=== PATIENT | male | born 1965 | race African-American/Black ===

== ENCOUNTER 2017-04-02 17:14 | Emergency (ER) | payer OTHER ==
[2017-04-02] MEDS ORDERED: DIPHTH,PERTUSS(ACELL),TET 0.5 ML DISP.SYRIN IM ONE (17:21)
[2017-04-02 17:22] VITALS: BP 142/86; PULSE 67; TEMP 98.3; BMI 27.1
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
== END 2017-04-02 19:59 | disposition home or self-care (01) ==
LOC: JERFT 17:14
PROC: 3E0234Z Introduction of Serum, Toxoid and Vaccine into Muscle, Percutaneous Approach (ICD-10-PCS; principal; 2017-04-02)
DX: S61.431A Puncture wound without foreign body of right hand, initial encounter (principal); W27.8XXA Contact with other nonpowered hand tool, initial encounter; Y93.89 Activity, other specified; Y92.69 Other specified industrial and construction area as the place of occurrence of the external cause; Y99.0 Civilian activity done for income or pay
CPT/HCPCS: 73130-TC-RT; 90715; 99281-25

== ENCOUNTER 2020-07-18 14:35 | Emergency (ER) | payer OTHER ==
[2020-07-18 14:47] VITALS: BMI 26.4
--- OUTSIDE RECORDS SUMMARY | 2020-07-18 14:49 | XMS ---
:1965 Author Organization [facility] Support Name Relationship Address Phone MASTRODDI [employer] Unavailable [address] [place] [address] [phone] [place] [address] LEMUEL WALKER [address] [place] [address] Re-disclosure Warning The records that you are about to access may contain information from federally- assisted alcohol or drug abuse programs. If such information is present, then the following federally mandated warning applies: This information has been disclosed to you from records protected by federal confidentiality rules (42 CFR part 2). The federal rules prohibit you from making any further disclosure of this information unless further disclosure is expressly permitted by the written consent of the person to whom it pertains or as otherwise permitted by 42 CFR part 2. A general authorization for the release of medical or other information is NOT sufficient for this purpose. The Federal rules restrict any use of the information to criminally investigate or prosecute any alcohol or drug abuse patient.The records that you are about to access may contain highly sensitive health information, the redisclosure of which is protected by Article 27-F of the [facility] Public Health law. If you continue you may haveaccess to information: Regarding HIV / AIDS; Provided by facilities licensed or operated by the [facility] Office of Mental Health; or Provided by the [facility] Office for People With Developmental Disabilities. If such information is present, then the following [facility] mandated warning applies: This information has been disclosed to you from confidential records which are protected by state law. State law prohibits you from making any further disclosure of this information without the specific written consent of the person to whom it pertains, or as otherwise permitted by law. Any unauthorized further disclosure in violation of state law may result in a fine or retirement sentence or both. A general authorization for the release of medical or other information is NOT sufficient authorization for further disclosure. Insurance Providers Payer name Policy type Policy ID Covered Covered green party's Policy P arturo / Coverage green party ID relationship to Yoon Inf ormation type yoon RIO NIDO [id number] 1 HEALTH CARE HMO/POS/EP O
--- NOTE | 2020-07-18 14:58 | PDOC ---
History of Present Illness - General Chief Complaint: Blood Sugar Problem Stated Complaint: HIGH BLOOD SUGAR Time Seen by Provider: 07/18/20 14:54 History Source: Patient, Old Records Exam Limitations: No Limitations - History of Present Illness Initial Comments: 07/18/20 14:56 Kb Charles is a 55M with no PMH sent from PMD Dr. Chevy Bhardwaj for evaluation for high blood sugar. Patient has no PMH, otherwise healthy, takes no medicines. For the last week has been having increased PO liquid intake and urinary output, says no matter how much water he drinks his mouth always feels dry. Saw PMD diagnosed with new onset diabetes, blood glucose elevated outpatient >400, sent to [facility] ED for evaluation. Patient denies feeling unwell. No fever, chills, nausea, vomiting, chest pain, SOB, abd pain, diarrhea. Urinary frequency. No meds, no HTN, no prior PMH DM. No FH DM. Denies vision changes or N/T to arms or legs. No PSH. Denies alcohol/drugs/tobacco. Past History - Medical History Allergies/Adverse Reactions: Allergies Allergy/AdvReac Type Severity Reaction Status Date / Time No Known Allergies Allergy Verified 07/18/20 14:53 Home Medications: Ambulatory Orders NK [No Known Home Medication] 07/18/20 COPD: No HTN: Yes - Psycho-Social/Smoking History Smoking History: Never smoked Have you smoked in the past 12 months: No - Substance Abuse Hx (Audit-C & DAST Scrn) How often the patient has a drink containing alcohol: Monthly or less Score: In Men: 4 or > Positive; In Women: 3 or > Positive: 1 Screen Result (Pos requires Nsg. Audit-10AR): Negative Review of Systems - Review of Systems Able to Perform ROS?: Yes Constitutional: No: Symptoms Reported HEENTM: No: Symptoms Reported Respiratory: No: Symptoms reported Cardiac (ROS): No: Symptoms Reported ABD/GI: No: Symptoms Reported : Yes: Frequency. No: Burning, Dysuria, Discharge, Flank Pain Musculoskeletal: No: Symptoms Reported Integumentary: No: Symptoms Reported Neurological: No: Symptoms reported Endocrine: Yes: Increased Thirst Hematologic/Lymphatic: No: Symptoms Reported All Other Systems: Reviewed and Negative *Physical Exam - Vital Signs Last Vital Signs Temp Pulse Resp BP Pulse Ox 98.3 F 84 20 129/86 99 07/18/20 14:42 07/18/20 14:42 07/18/20 14:42 07/18/20 14:42 07/18/20 14:42 - Physical Exam General Appearance: Yes: Nourished, Appropriately Dressed, Other (resting sitting up in bed in NAD). No: Apparent Distress HEENT: positive: EOMI, LUIS EDUARDO, Normal Voice, Symmetrical, Pharynx Normal, Hearing Grossly Normal. negative: Scleral Icterus (R), Scleral Icterus (L), Pharyngeal Erythema, Tonsillar Exudate, Tonsillar Erythema Neck: positive: Trachea midline, Normal Thyroid, Supple. negative: Tender, Lymphadenopathy (R), Lymphadenopathy (L), Tender lateral, Tender midline Respiratory/Chest: positive: Lungs Clear, Normal Breath Sounds. negative: Chest Tender, Respiratory Distress, Accessory Muscle Use, Crackles, Rales, Rhonchi, Stridor, Wheezing Cardiovascular: positive: Regular Rhythm, Regular Rate Gastrointestinal/Abdominal: positive: Normal Bowel Sounds, Flat, Soft, Pulsatile Mass. negative: Tender, Guarding, Rebound Musculoskeletal: positive: Normal Inspection. negative: CVA Tenderness, Decreased Range of Motion, Vertebral Tenderness Extremity: positive: Normal Capillary Refill, Normal Inspection, Normal Range of Motion, Pelvis Stable. negative: Tender Integumentary: positive: Normal Color, Dry, Warm. negative: Diaphoresis Neurologic: positive: Fully Oriented, Alert, Normal Mood/Affect, Normal Response, Motor Strength 5/5. negative: Sensory Deficit ED Treatment Course - LABORATORY CBC & Chemistry Diagram: 07/18/20 15:10 07/18/20 15:10 - ADDITIONAL ORDERS Additional order review: Laboratory Results 07/18/20 14:41 POC Glucometer 474 07/18/20 14:41 POC Glucometer 474 Medical Decision Making - Medical Decision Making 07/18/20 14:58 Patient presents to [facility] ED sent by PMD for hyperglycemia. Asymptomatic. VSS. In NAD. Exam unremarakble. Patient has symptoms consistent with new onset T2DM. Working up for possible DKA, unlikely given patient feels fine other than urinary frequency. Getting CBC/CMP/ketones/VBG/UA and giving 1L NS for dehydration. Will likely discharge home with PMD f/u. Contacted Dr. Bhardwaj for clarification of reason for visit, discharge planning, and if he would like to start outp atient medications. 07/18/20 15:49 Labs notable for: - WBC 12.4, afebrile, non-specific - VBG pH no acidosis - UA 2+ glucose, trace ketones, 1+ blood, no evidence of infection, no urinary sx - beta hydroxybutyrate 9.6 but no AGAP - CMP WNL 07/18/20 16:[address] Bhardwaj, outpatient BGM 650, sent for HHS vs. DKA. If stable to go home, says patient must see him in his office at 1PM tomorrow and he will start patient on medications. If not, contact him again for admission. Patient has elevated ketones but no AGAP, no acidosis, BGM 474. Treating hyperglycemia in ED with 5U IV insulin. If BGM improved and patient still asymptomatic, will d/c home. 07/18/20 17:38 After 2nd liter NS, repeat BGM is 240. Stable for discharge home with PMD f/u tomorrow. Discharge - Discharge Information Problems reviewed: Yes Clinical Impression/Diagnosis: Abnormal laboratory test, Hyperglycemia Condition: Stable Disposition: HOME - Admission No - Follow up/Referral Referrals: Chevy Bhardwaj [facility] [Primary Care Provider] - - Patient Discharge Instructions Patient Printed Discharge Instructions: DI for Diabetes Type 2 Additional Instructions: Today you were evaluated for high blood sugar and urinating at lot. Your labs show no emergency disease, but you do have elevated ketones consistent with dehydration without diabetic ketoacidosis. We gave you IV fluids for dehydration and insulin here for your high blood sugar, and your sugar dropped to 240. Your symptoms are consistent with new diabetes, and you should see your regular doctor for management in terms of medications to take. Dr. Bhardwaj says that you must see him in his office tomorrow, 07/19/20, at 1:00PM. At home, stay hydrated and limit the amount of carbohydrates such as bread and rice and drinks with sugar, and get 30 minutes of cardio exercise daily. If you experience fevers, nausea, vomiting, abdominal pain, or become very dehydrated, or have any new or concerning symptoms, please return to the emergency room. - Post Discharge Activity
[2020-07-18] MEDS ORDERED: SODIUM CHLORIDE 0.9% 500 ML INFUS.BAG IV ONE (15:06)
[2020-07-18 15:24] LABS: VENOUS O2 SATURATION 88.9 % (70-80); VENOUS PCO2 37.2 mmHg (38-52); VENOUS PH 7.38 (7.310-7.410)
[2020-07-18 15:39] LABS: BASO % 0.3 % (0-2.0); EOS % 1.8 % (0-4.5); HEMATOCRIT 45.5 % (35.4-49); HEMOGLOBIN 15.4 GM/dL (11.7-16.9); LYMPH % 15.7 % (8-40); MCH 27.2 pg (25.7-33.7); MCHC 33.9 g/dl (32.0-35.9); MEAN CELL VOLUME 80.3 fl (80-96); NEUT % 76.2 % (42.8-82.8); PLATELET COUNT 233 K/MM3 (134-434); RBC 5.67 M/mm3 (4.00-5.60); RDW 12.9 % (11.9-15.9); WHITE BLOOD COUNT 12.4 K/mm3 (4.0-10.0)
--- NOTE | 2020-07-18 15:41 | PDOC ---
Documentation entered by Ngozi Valero SCRIBE, acting as scribe for Lb Sarabia MD. Lb Sarabia MD: This documentation has been prepared by the Anjum ledesma Ana, SCRIBE, under my direction and personally reviewed by me in its entirety. I confirm that the documentation accurately reflects all work, treatment, procedures, and medical decision making performed by me. Attending Attestation - Resident Resident Name: ObivanessaBen - ED Attending Attestation I have performed the following: I have examined & evaluated the patient, The case was reviewed & discussed with the resident, I agree w/resident's findings & plan, Exceptions are as noted - HPI HPI: 07/18/20 15:05 Patient is a 55 year old male with no significant past medical history who presents to the ED, from Dr. Bhardwaj's office, with high blood sugar levels. Patient stated he has had increased thirst and urinary frequency for 1 week. Pt had fingerstick in 400s at Dr. Bhardwaj's office, and he was sent to ED for further management. Patient denies: fever, chills, any vision changes, nausea, vomiting, SOB, chest pain, abdominal pain, diarrhea, numbness/tingling in extremities, or any other related symptoms. Allergies: NKDA - Physicial Exam PE: 07/18/20 15:05 See resident exam. - Medical Decision Making 07/18/20 15:42 55 M here for elevated fingerstick. No complaints, well appearing. Suspect new onset diabetes. - Labs, ketones - IV fluids 07/18/20 16:06 Labs notable for glucose 400s, trace ketones in urine, Beta hydroxy 9.6 Pt with normal AG, not in DKA Will give fluids, 1 dose of IV insulin 5u Discussed with Dr. Bhardwaj, who will see pt in office tomorrow to start him on diabetes medications. 07/18/20 17:40 Repeat fingerstick 240 Pt is well appearing, with normal vitals. Clinically stable for DC at this time. I discussed the physical exam findings, ancillary test results and final diagnoses with the patient. I answered all of the patient's questions. The patient was satisfied with the care received and felt comfortable with the discharge plan and treatment plan. The patient agrees to follow up with the primary care physician within 24-72 hours. Discharge - Discharge Information Problems reviewed: Yes Clinical Impression/Diagnosis: Abnormal laboratory test, Hyperglycemia Condition: Stable Disposition: HOME - Follow up/Referral Referrals: Chevy Bhardwaj [facility] [Primary Care Provider] - - Patient Discharge Instructions Patient Printed Discharge Instructions: DI for Diabetes Type 2 Additional Instructions: Today you were evaluated for high blood sugar and urinating at lot. Your labs show no emergency disease, but you do have elevated ketones consistent with dehydration without diabetic ketoacidosis. We gave you IV fluids for dehydration and insulin here for your high blood sugar, and your sugar dropped to 240. Your symptoms are consistent with new diabetes, and you should see your regular doctor for management in terms of medications to take. Dr. Bhardwaj says that you must see him in his office tomorrow, 07/19/20, at 1:00PM. At home, stay hydrated and limit the amount of carbohydrates such as bread and rice and drinks with sugar, and get 30 minutes of cardio exercise daily. If you experience fevers, nausea, vomiting, abdominal pain, or become very dehydrated, or have any new or concerning symptoms, please return to the emergency room. - Post Discharge Activity
[2020-07-18 15:47] LABS: EPI CELLS 2 /uL (0-25.1); HYALINE CASTS 0 /uL (0-3.1); URINE APPEARANCE CLEAR; URINE BACTERIA 1 /uL (0-1359); URINE BILIRUBIN NEGATIVE (NEGATIVE); URINE COLOR YELLOW; URINE GLUCOSE (UA) 2+ (NEGATIVE); URINE KETONE TRACE (NEGATIVE); URINE LEUK ESTERASE NEGATIVE (NEGATIVE); URINE NITRITE NEGATIVE (NEGATIVE); URINE PROTEIN TRACE (NEGATIVE); URINE RBC 1 /uL (0-23.9); URINE UROBILINOGEN 0.2 mg/dL (0.2-1.0); URINE WBC 1 /uL (0-25.8)
[2020-07-18 16:02] LABS: ALBUMIN 4.3 g/dl (3.4-5.0); BILIRUBIN,TOTAL 0.6 mg/dL (0.2-1); BLOOD UREA NITROGEN 21.8 mg/dL (7-18); CALCIUM 9.7 mg/dL (8.5-10.1); CREATININE 1.3 mg/dL (0.55-1.3); POTASSIUM 4.3 mmol/L (3.5-5.1); TOT PROT 7.6 g/dl (6.4-8.2)
[2020-07-18] MEDS ORDERED: INSULIN REGULAR HUMAN 100 UNITS/ML *VIAL IVPUSH ONE (16:10)
[2020-07-18] MEDS ORDERED: SODIUM CHLORIDE 1,000 ML IV STA (16:21)
[2020-07-18 18:21] VITALS: BP 118/73; PULSE 72; TEMP 97.8
== END 2020-07-18 18:00 | disposition home or self-care (01) ==
LOC: JER 14:35
PROC: 3E013VG Introduction of Insulin into Subcutaneous Tissue, Percutaneous Approach (ICD-10-PCS; principal; 2020-07-18)
PROC: 3E0337Z Introduction of Electrolytic and Water Balance Substance into Peripheral Vein, Percutaneous Approach (ICD-10-PCS; 2020-07-18)
DX: R73.9 Hyperglycemia, unspecified (principal); R79.9 Abnormal finding of blood chemistry, unspecified
CPT/HCPCS: 36415; 80053; 81003; 82010; 82803; 82962; 85025; 99284-25